=== PATIENT | male | born 1965 | race Caucasian/White ===

== ENCOUNTER → 2019-04-15 | Outpatient (CLI) | payer BC ==
[2019-04-15 13:00] LABS: INR 0.99; PROTHROMBIN TIME 13.6 seconds (11.9-14.5)
[2019-04-15 13:01] LABS: PARTIAL THROMBOPLASTIN TIME 27.2 seconds (23.8-35.5)
--- NOTE | 2019-04-15 14:00 | Diagnostic Imaging Report ---
Chest, 1 view, 04/15/2019. History: PICC placement. Comparison: None available. Findings: The cardiomediastinal silhouette and pulmonary vasculature are within normal limits for a portable exam. There is no focal consolidation or pleural effusion. Right upper extremity PICC terminates at the cavoatrial junction. Left chest wall ICD is also noted. There are no acute osseous or soft tissue abnormalities. Impression: No acute cardiopulmonary abnormality. Right arm PICC in adequate position. Signed by: Maurisio Caba on 04/15/2019 1:56 PM
== END ==
LOC: DX 11:58
PROVIDERS: ATTEND Internal Medicine Infectious Disease
DX: Z79.2 Long term (current) use of antibiotics (principal)
CPT/HCPCS: 36415; 36569; 71045; 85049; 85610; 85730

== ENCOUNTER 2022-04-14 15:55 | Inpatient (IN) | payer BC ==
[~2022-04-14] VITALS: Ht 167.6 cm; Wt 103.1 kg
[2022-04-14] MEDS ORDERED: FUROSEMIDE INJ 10 MG/ML 4 ML VIAL IV ONE (16:15)
[2022-04-14 17:06] LABS: BASOPHILS # (AUTO) 0.1 (0.0-0.1); BASOPHILS % 0.7 % (0.0-1.0); EOSINOPHILS # (AUTO) 0.2 (0.0-0.4); EOSINOPHILS % 2.7 % (0.0-6.0); HEMATOCRIT 46.9 % (38.2-49.6); HEMOGLOBIN 15.5 g/dL (14.0-18.0); LYMPHOCYTES # (AUTO) 1.9 (1.0-3.2); LYMPHOCYTES % 26.5 % (18.0-39.1); MEAN CORPUSCULAR HEMOGLOBIN 32.5 pg (28-32); MEAN CORPUSCULAR VOLUME 98.3 fL (81-99); MONOCYTES # (AUTO) 0.5 (0.2-0.8); MONOCYTES % 7.1 % (4.4-11.3); NEUTROPHILS # (AUTO) 4.4 (2.1-6.9); NEUTROPHILS % 62.6 % (38.7-80.0); PLATELET COUNT 219 x10e3/uL (140-360); RED BLOOD COUNT 4.77 x10e6/uL (4.3-5.7); RED CELL DISTRIBUTION WIDTH 13.8 % (11.7-14.4)
[2022-04-14 17:27] LABS: ALBUMIN 3.6 g/dL (3.5-5.0); ALBUMIN/GLOBULIN RATIO 0.9 (0.8-2.0); CALCIUM 9.1 mg/dL (8.4-10.2); CREATININE, SERUM 1.24 mg/dL (0.72-1.25)
[2022-04-14] MEDS ORDERED: PRAVASTATIN SOD80 MG (17:52)
[2022-04-14] MEDS ORDERED: ASPIRIN81 MG PO (17:52)
[2022-04-14] MEDS ORDERED: CLOPIDOGREL75 MG PO (17:53)
[2022-04-14] MEDS ORDERED: METFORMIN HCL500 MG PO (17:53)
[2022-04-14] MEDS ORDERED: ENTRESTO 24 MG1 EACH PO (17:54)
[2022-04-14] MEDS ORDERED: JARDIANCE10 MG (17:55)
[2022-04-14] MEDS ORDERED: FUROSEMIDE40 MG PO (17:57)
[2022-04-14] MEDS ORDERED: METOPROLOL SUCC25 MG PO (17:58)
[2022-04-14] MEDS ORDERED: GLYBURIDE5 MG PO (17:58)
[2022-04-14] MEDS ORDERED: OMEPRAZOLE40 MG PO (17:59)
[2022-04-14] MEDS ORDERED: DICYCLOMINE HCL10 MG PO (18:02)
[2022-04-14] MEDS ORDERED: GENERLAC10 GM/15 M PO (18:03)
[2022-04-14 20:55] VITALS: BP 108/85
[2022-04-14] MEDS: VALSARTAN/SACUBITRIL 24MG/26MG 1 EA TAB PO SCH (21:00)
[2022-04-14] MEDS: PRAVASTATIN 20 MG TAB PO SCH (21:00)
[2022-04-14 22:00] VITALS: BP 108/85
[2022-04-15] VITALS (9 sets, daily range): BP systolic 90–157; BP diastolic 68–98
[2022-04-15] MEDS ORDERED: ONDANSETRON HCL INJ 2MG/ML 2ML 2 MG/ML VIAL IV PRN (02:30)
[2022-04-15] MEDS: VALSARTAN/SACUBITRIL 24MG/26MG 1 EA TAB PO SCH ×3 (02:39→20:43)
[2022-04-15 06:12] LABS: BASOPHILS # (AUTO) 0.1 (0.0-0.1); EOSINOPHILS # (AUTO) 0.3 (0.0-0.4); EOSINOPHILS % 3.5 % (0.0-6.0); HEMATOCRIT 43.5 % (38.2-49.6); HEMOGLOBIN 14.6 g/dL (14.0-18.0); LYMPHOCYTES # (AUTO) 1.9 (1.0-3.2); LYMPHOCYTES % 25.9 % (18.0-39.1); MEAN CORPUSCULAR HEMOGLOBIN 32.2 pg (28-32); MEAN CORPUSCULAR HGB CONC 33.6 g/dL (31-35); MEAN CORPUSCULAR VOLUME 95.8 fL (81-99); MONOCYTES # (AUTO) 0.6 (0.2-0.8); MONOCYTES % 8.3 % (4.4-11.3); NEUTROPHILS # (AUTO) 4.5 (2.1-6.9); PLATELET COUNT 210 x10e3/uL (140-360); RED BLOOD COUNT 4.54 x10e6/uL (4.3-5.7); RED CELL DISTRIBUTION WIDTH 13.9 % (11.7-14.4)
[2022-04-15 06:45] LABS: ANION GAP 13.7 mmol/L (8-16); CALCIUM 8.5 mg/dL (8.4-10.2); CREATININE, SERUM 1.16 mg/dL (0.72-1.25); POTASSIUM 3.7 mmol/L (3.5-5.1)
[2022-04-15] MEDS: ASPIRIN 81 MG CHEW TAB PO SCH (08:35)
[2022-04-15] MEDS: FUROSEMIDE INJ 10 MG/ML 4 ML VIAL IV SCH ×2 (08:35→17:00)
[2022-04-15] MEDS: CLOPIDOGREL BISULFATE 75 MG TAB PO SCH (08:36)
[2022-04-15] MEDS: METOPROLOL SUCCINATE 25 MG TAB XL PO SCH (08:52)
[2022-04-15] MEDS ORDERED: SPIRONOLACTONE 25 MG TAB PO SCH (09:00)
[2022-04-15] MEDS ORDERED: LEVALBUTEROL HCL SOLN NEBU 1.25 MG/3 ML NEB INH PRN (09:30)
[2022-04-15] MEDS ORDERED: DEXTROSE 50% SYRINGE 50 ML IV PRN (09:30)
[2022-04-15] MEDS ORDERED: MAGNESIUM SULFATE 2GM/50ML 50 ML IV ONE (10:00)
[2022-04-15] MEDS ORDERED: SODIUM CHLORIDE 0.9% 250ML 250 ML ONE (10:20)
[2022-04-15] MEDS: METHYLPREDNISOLONE SOD SUCC 40 MG/ML VIAL 1ML IV SCH ×2 (10:55→21:00)
[2022-04-15] MEDS: DOXYCYCLINE HYCLATE TABLET 100 MG TAB PO SCH ×2 (10:56→17:00)
[2022-04-15] MEDS: INSULIN LISPRO 100 UNIT/1 ML 3ML VIAL SQ SCH ×3 (12:36→21:00)
[2022-04-15] MEDS: LEVALBUTEROL HCL SOLN NEBU 1.25 MG/3 ML NEB INH SCH ×2 (14:39→19:00)
[2022-04-15] MEDS: IPRATROPIUM BROMIDE 0.02% 2.5 ML NEB NEB SCH ×2 (14:39→19:00)
[2022-04-15] MEDS: PRAVASTATIN 20 MG TAB PO SCH (21:00)
[2022-04-16] VITALS (7 sets, daily range): BP systolic 89–113; BP diastolic 66–82
[2022-04-16] MEDS: IPRATROPIUM BROMIDE 0.02% 2.5 ML NEB NEB SCH (01:05)
[2022-04-16] MEDS: LEVALBUTEROL HCL SOLN NEBU 1.25 MG/3 ML NEB INH SCH (01:05)
[2022-04-16 05:16] LABS: BASOPHILS % 0.2 % (0.0-1.0); HEMATOCRIT 45.5 % (38.2-49.6); HEMOGLOBIN 14.9 g/dL (14.0-18.0); LYMPHOCYTES # (AUTO) 1.2 (1.0-3.2); LYMPHOCYTES % 13.4 % (18.0-39.1); MEAN CORPUSCULAR HEMOGLOBIN 32.7 pg (28-32); MEAN CORPUSCULAR HGB CONC 32.7 g/dL (31-35); MONOCYTES # (AUTO) 0.1 (0.2-0.8); MONOCYTES % 1.2 % (4.4-11.3); NEUTROPHILS # (AUTO) 7.5 (2.1-6.9); NEUTROPHILS % 84.9 % (38.7-80.0); PLATELET COUNT 174 x10e3/uL (140-360); RED BLOOD COUNT 4.55 x10e6/uL (4.3-5.7); RED CELL DISTRIBUTION WIDTH 13.6 % (11.7-14.4)
[2022-04-16 05:41] LABS: ANION GAP 14.3 mmol/L (8-16); CALCIUM 8.6 mg/dL (8.4-10.2); CREATININE, SERUM 1.13 mg/dL (0.72-1.25); POTASSIUM 4.3 mmol/L (3.5-5.1)
[2022-04-16 06:11] LABS: CHOL/HDL RATIO 5.9 (3.9-4.7)
[2022-04-16] MEDS: INSULIN LISPRO 100 UNIT/1 ML 3ML VIAL SQ SCH ×4 (07:30→21:12)
[2022-04-16] MEDS: FUROSEMIDE INJ 10 MG/ML 4 ML VIAL IV SCH ×2 (08:26→17:15)
[2022-04-16] MEDS: PANTOPRAZOLE SOD 40 MG TABEC PO SCH (08:26)
[2022-04-16] MEDS: DOXYCYCLINE HYCLATE TABLET 100 MG TAB PO SCH ×2 (08:26→17:15)
[2022-04-16] MEDS: METOPROLOL SUCCINATE 25 MG TAB XL PO SCH (08:27)
[2022-04-16] MEDS: VALSARTAN/SACUBITRIL 24MG/26MG 1 EA TAB PO SCH ×2 (08:27→21:07)
[2022-04-16] MEDS: CLOPIDOGREL BISULFATE 75 MG TAB PO SCH (08:27)
[2022-04-16] MEDS: METHYLPREDNISOLONE SOD SUCC 40 MG/ML VIAL 1ML IV SCH ×2 (08:28→21:07)
[2022-04-16] MEDS: EMPAGLIFLOZIN 10 MG TABLET PO SCH (08:28)
[2022-04-16] MEDS: ASPIRIN 81 MG CHEW TAB PO SCH (08:28)
[2022-04-16] MEDS ORDERED: LEVALBUTEROL 15 GM AERO IH PRN ×2 (08:45→11:00)
[2022-04-16] MEDS ORDERED: LEVALBUTEROL HCL SOLN NEBU 0.63 MG/3 ML NEB IH PRN (09:15)
[2022-04-16] MEDS ORDERED: ONDANSETRON HCL 4 MG ORAL DISINTEGRATING TAB SL PRN (10:30)
[2022-04-16] MEDS ORDERED: LEVALBUTEROL HCL SOLN NEBU 0.63 MG/3 ML NEB IH SCH (11:00)
[2022-04-16] MEDS: LEVALBUTEROL 15 GM AERO IH SCH ×4 (11:48→23:20)
[2022-04-16] MEDS ORDERED: REMDESIVIR 100MG 200 MG in SODIUM CHLORIDE 0.9% 100 ML IV ONE (14:00)
[2022-04-16] MEDS: ENOXAPARIN INJ 80 MG/0.8 ML SYR SC SCH (17:15)
[2022-04-16] MEDS: ASCORBIC ACID 500 MG TAB PO SCH (17:15)
[2022-04-16] MEDS ORDERED: SIMVASTATIN 40 MG TAB PO SCH (21:00)
[2022-04-16] MEDS: PRAVASTATIN 20 MG TAB PO SCH (21:07)
[2022-04-17] VITALS: BP 110/66
[2022-04-17 00:45] VITALS: BP 110/66
[2022-04-17] MEDS: LEVALBUTEROL 15 GM AERO IH SCH ×3 (03:40→10:03)
[2022-04-17 07:12] LABS: BASOPHILS % 0.1 % (0.0-1.0); HEMOGLOBIN 14.9 g/dL (14.0-18.0); LYMPHOCYTES # (AUTO) 1.2 (1.0-3.2); LYMPHOCYTES % 9.1 % (18.0-39.1); MEAN CORPUSCULAR HEMOGLOBIN 32.7 pg (28-32); MEAN CORPUSCULAR HGB CONC 33.9 g/dL (31-35); MEAN CORPUSCULAR VOLUME 96.7 fL (81-99); MONOCYTES # (AUTO) 0.3 (0.2-0.8); MONOCYTES % 2.3 % (4.4-11.3); NEUTROPHILS # (AUTO) 11.5 (2.1-6.9); NEUTROPHILS % 87.8 % (38.7-80.0); PLATELET COUNT 163 x10e3/uL (140-360); RED BLOOD COUNT 4.55 x10e6/uL (4.3-5.7); RED CELL DISTRIBUTION WIDTH 14.1 % (11.7-14.4)
[2022-04-17 07:42] VITALS: BP 100/70
[2022-04-17 07:48] LABS: ALBUMIN 3.1 g/dL (3.5-5.0); ALBUMIN/GLOBULIN RATIO 0.9 (0.8-2.0); ANION GAP 13.8 mmol/L (8-16); CALCIUM 8.4 mg/dL (8.4-10.2); CREATININE, SERUM 0.96 mg/dL (0.72-1.25); POTASSIUM 3.8 mmol/L (3.5-5.1)
[2022-04-17] MEDS ORDERED: FUROSEMIDE 40 MG TAB PO SCH (08:15)
[2022-04-17 09:00] VITALS: BP 100/70
[2022-04-17] MEDS ORDERED: METOPROLOL SUCCINATE 25 MG TAB XL PO SCH (09:00)
[2022-04-17] MEDS ORDERED: DEXAMETHASONE SOD PHOS 10 MG/1 ML VIAL IV SCH (09:00)
[2022-04-17] MEDS ORDERED: ZINC SULFATE 50 MG CAP PO SCH (09:00)
[2022-04-17] MEDS ORDERED: CEFTRIAXONE 2 GM in SODIUM CHLORIDE 0.9% 100 ML IV SCH (09:00)
[2022-04-17] MEDS: ASCORBIC ACID 500 MG TAB PO SCH (09:40)
[2022-04-17] MEDS: CLOPIDOGREL BISULFATE 75 MG TAB PO SCH (09:40)
[2022-04-17] MEDS: PANTOPRAZOLE SOD 40 MG TABEC PO SCH (09:40)
[2022-04-17] MEDS: ASPIRIN 81 MG CHEW TAB PO SCH (09:40)
[2022-04-17] MEDS: METHYLPREDNISOLONE SOD SUCC 40 MG/ML VIAL 1ML IV SCH (09:40)
[2022-04-17] MEDS: DOXYCYCLINE HYCLATE TABLET 100 MG TAB PO SCH (09:40)
[2022-04-17] MEDS: EMPAGLIFLOZIN 10 MG TABLET PO SCH (09:45)
[2022-04-17] MEDS: VALSARTAN/SACUBITRIL 24MG/26MG 1 EA TAB PO SCH (09:46)
[2022-04-17] MEDS: ENOXAPARIN INJ 80 MG/0.8 ML SYR SC SCH (09:48)
[2022-04-17] MEDS: INSULIN LISPRO 100 UNIT/1 ML 3ML VIAL SQ SCH ×2 (10:03→12:26)
[2022-04-17 12:34] VITALS: BP 113/79
[2022-04-17] MEDS ORDERED: REMDESIVIR 100MG 100 MG in SODIUM CHLORIDE 0.9% 100 ML IV SCH (14:00)
== END 2022-04-17 13:20 | disposition home or self-care (01) | DRG 177 ==
LOC: ER 16:12 → ERHOLD 16:31 → MED/SURG 20:18 → MED/SURG2 20:33
PROVIDERS: ADMIT Internal Medicine; ATTEND Internal Medicine
PROC: 8E0ZXY6 Isolation (ICD-10-PCS; principal; 2022-04-14)
PROC: XW033E5 Introduction of Remdesivir Anti-infective into Peripheral Vein, Percutaneous Approach, New Technology Group 5 (ICD-10-PCS; 2022-04-16)
DX: U07.1 COVID-19 (principal); I50.23 Acute on chronic systolic (congestive) heart failure; J12.82 Pneumonia due to coronavirus disease 2019; J18.0 Bronchopneumonia, unspecified organism; J18.9 Pneumonia, unspecified organism; J44.1 Chronic obstructive pulmonary disease with (acute) exacerbation; J44.0 Chronic obstructive pulmonary disease with (acute) lower respiratory infection; I11.0 Hypertensive heart disease with heart failure; I25.10 Atherosclerotic heart disease of native coronary artery without angina pectoris; R09.02 Hypoxemia; E66.01 Morbid (severe) obesity due to excess calories; Z68.36 Body mass index [BMI] 36.0-36.9, adult; I25.2 Old myocardial infarction; E78.5 Hyperlipidemia, unspecified; Z95.5 Presence of coronary angioplasty implant and graft; E11.69 Type 2 diabetes mellitus with other specified complication; R00.0 Tachycardia, unspecified
CPT/HCPCS: 36415; 71045; 71250; 80048; 80053; 80061; 82948; 83036; 83735; 83880; 84484; 85025; 87040; 93005; 93306; 94640; 94664; 94799; 96372; 99284; J0248; J0696; J1100; J1650; J1940; J2405; J2920; J3475; J7050